=== PATIENT | male | born 1945 | race African-American/Black ===

== ENCOUNTER → 2016-05-24 | Outpatient (CLI) | payer OTHER ==
[~2016-05-24] MED LIST: AMLODIPINE BESY10 MG PO; ASPERDRINK81 MG PO; ATORVASTATIN; ATORVASTATIN CA80 MG PO; CHEWABLE ASPIRI81 MG PO; CLARITIN D PO; CLARITIN R10 MG REDI PO; CLARITIN10 M1 PO; CLARITIN10 M3 PO; COUMADIN5 MG PO; COUMADIN7.5 MG PO; Coumadin; FERREX; FERREX 150 FOR1 EACH PO; FISH OI; FISH OIL 1,0001 EAC1 PO; FISH OIL500 MG; FOLPLEX PO; HYDROCODON-ACE1 EAC7 PO; HYDROCODON-ACE1 EACH PO; IMDUR120 MG PO; ISOSORBIDE MON120 M1 PO; Imdur; JANUVIA50 MG PO; Januvia; K DU; K-DUR20 ME1 PO; LASIX PO; LIPITOR80 MG PO; LOSARTAN HCTZ; LOSARTAN-HCTZ1 EACH; LOSARTAN-HCTZ1 EACH PO; LYRICA50 MG PO; Lyrica; METOPROLOL SUC100 MG PO; METOPROLOL TAR100 MG PO; MULTICHEW1 TAB.CHEW PO; NITROGLYCERIN; NITROGLYGERIN0.4 MG; NITROSTAT0.4 MG SL; NORVASC PO; OMEPRAZOLE20 M1 PO; ONE DAILY 50 PL1 TA1 PO; PRILOSEC20 M1 PO; Prilosec; VITAMIN D-32000 UNI1 PO; VITAMIN D2000 UNI1 PO; Vitamin; [UNRECOGNIZED DRUG - OTHER]; [UNRECOGNIZED DRUG - OTHER]; [UNRECOGNIZED DRUG - OTHER]; [UNRECOGNIZED DRUG - OTHER]
== END | disposition home or self-care (01) ==
LOC: CSSDAY 09:11
DX: E29.1 Testicular hypofunction (principal); Z79.890 Hormone replacement therapy
CPT/HCPCS: 96372; J3121

== ENCOUNTER → 2016-06-21 | Outpatient (CLI) | payer OTHER | END | disposition home or self-care (01) | LOC: CSSDAY 09:11 | DX: E29.1 Testicular hypofunction (principal) | CPT/HCPCS: 96372; J3121 ==

== ENCOUNTER → 2016-07-19 | Outpatient (CLI) | payer OTHER | END | disposition home or self-care (01) | LOC: CSSDAY 08:12 | DX: E29.1 Testicular hypofunction (principal); Z79.899 Other long term (current) drug therapy | CPT/HCPCS: 96372; J3121 ==

== ENCOUNTER → 2016-08-16 | Outpatient (CLI) | payer OTHER | END | disposition home or self-care (01) | LOC: CSSDAY 08:53 | DX: E29.1 Testicular hypofunction (principal) | CPT/HCPCS: 96372; J3121 ==

== ENCOUNTER → 2016-09-13 | Outpatient (CLI) | payer OTHER | END | disposition home or self-care (01) | LOC: CSSDAY 08:34 | DX: E29.1 Testicular hypofunction (principal); Z79.899 Other long term (current) drug therapy | CPT/HCPCS: 96372; J3121 ==

== ENCOUNTER → 2016-10-11 | Outpatient (CLI) | payer OTHER | END | disposition home or self-care (01) | LOC: CSSDAY 08:34 | DX: E29.1 Testicular hypofunction (principal); Z79.899 Other long term (current) drug therapy | CPT/HCPCS: 96372; J3121 ==

== ENCOUNTER → 2016-11-08 | Outpatient (CLI) | payer OTHER | END | disposition home or self-care (01) | LOC: CSSDAY 08:46 | DX: E29.1 Testicular hypofunction (principal) | CPT/HCPCS: 96372; J3121 ==